=== PATIENT | female | born 1960 | race Caucasian/White ===

== ENCOUNTER 2017-04-22 18:49 | Inpatient (IN) | payer MEDICAID ==
[~2017-04-22] VITALS: Ht 170.2 cm; Wt 105.2 kg
[2017-04-22 23:04] LABS: ABNORMAL IP MESSAGE 1; HEMATOCRIT 27.3 % (37.0-47.0); HEMOGLOBIN 7.9 g/dl (12.0-16.0); MEAN CORPUSCULAR HEMOGLOBIN 24.6 pg (29.0-33.0); MEAN CORPUSCULAR HGB CONC 28.9 g/dl (32.0-37.0); MEAN PLATELET VOLUME 10.4 fl (7.4-10.4); PLATELET COUNT 674 10^3/UL (140-415); RED BLOOD COUNT 3.21 10^6/ul (4.20-5.40); RED CELL DISTRIBUTION WIDTH 16.4 % (11.5-14.5); WHITE BLOOD COUNT 9.4 10^3/ul (4.8-10.8)
[2017-04-22 23:08] LABS: INR 1.14; PROTIME 14.6 Sec (12.2-14.2); PT RATIO 1.1
[2017-04-22 23:09] LABS: PARTIAL THROMBOPLASTIN TIME 29.5 Sec (25.0-35.0)
[2017-04-22 23:13] LABS: POSITIVE DIFF @See below
[2017-04-22 23:23] LABS: ALANINE AMINOTRANSFERASE 25 IU/L (13-69); ALBUMIN/GLOBULIN RATIO 0.62; ALKALINE PHOSPHATASE 196 IU/L (42-121); ANION GAP 17 (8-16); ASPARTATE AMINO TRANSFERASE 18 IU/L (15-46); BLOOD UREA NITROGEN 51 mg/dl (7-20); CALCIUM 9.6 mg/dl (8.4-10.2); CARBON DIOXIDE 20 mmol/L (21-31); CHLORIDE 107 mmol/L (97-110); CREATININE 3.32 mg/dl (0.44-1.00); GLUCOSE 104 mg/dl (70-220); POTASSIUM 4.6 mmol/L (3.5-5.1); SODIUM 139 mmol/L (135-144); TOTAL PROTEIN 7.8 g/dl (6.1-8.1)
[2017-04-22 23:27] LABS: ADD UMIC YES; UR ASCORBIC ACID NEGATIVE (NEGATIVE); UR BILIRUBIN (Dip) NEGATIVE (NEGATIVE); UR BLOOD (Dip) 1+ mg/dL (NEGATIVE); UR CLARITY CLEAR (CLEAR); UR COLOR YELLOW (YELLOW); UR GLUCOSE (Dip) NEGATIVE (NEGATIVE); UR KETONES (Dip) NEGATIVE (NEGATIVE); UR LEUKOCYTE ESTERASE (Dip) NEGATIVE Leu/ul (NEGATIVE); UR NITRITE (Dip) NEGATIVE (NEGATIVE); UR RBC 1 /HPF (0-5); UR SPECIFIC GRAVITY (Dip) 1.015 (1.003-1.030); UR TOTAL PROTEIN (Dip) 2+ mg/dl (NEGATIVE); UR UROBILINOGEN (Dip) NEGATIVE (NEGATIVE)
[2017-04-22 23:33] LABS: TROPONIN-I < 0.012 ng/ml (0.00-0.12)
[2017-04-23] VITALS: PULSE 86; TEMP 97.9
--- NOTE | 2017-04-23 01:51 | RADRPT ---
PROCEDURE: CT ABDOMEN/PELVIS WITHOUT CONTRAST CLINICAL INDICATION: 56-year-old female with abdominal distension. TECHNIQUE: The study was performed utilizing a GE Tenantrexpe[employer]actX VCT 64-slice CT scanner. Direct axia l sections were obtained through the abdomen and pelvis without the use of intravenous contrast mate rial. Sagittal and coronal reformations were obtained. One or more of the following dose reduction t echniques were utilized: automated exposure control, adjustment of the mA and/or kV according to pat ient's size and/or the use of iterative reconstruction technique. The images were reviewed on a PAC S workstation. CTD/vol = 27.4 mGy; Total Exam DLP = 1782.1 mGy-cm. COMPARISON: None. FINDINGS: There is minimal bibasilar subsegmental atelectasis.. There is no evidence for significant pleural effusion. The liver has a normal size and contour without focal areas of abnormal density. No intra hepatic nor extrahepatic biliary ductal dilatation is seen. The gallbladder is not well visualized b ut without calcified stones, its or significant wall thickening. The pancreas is without areas of ab normal attenuation. The spleen is identified and has a normal size without abnormal density. The ad renal glands are unremarkable. The kidneys are atrophic bilaterally with moderate bilateral hydronep hrosis. There is no evidence for nephroureterolithiasis. The urinary bladder is distended with urine . There is a moderate hiatal hernia. There is a large amount of ascites throughout the abdomen and p felix. There is no evidence for bowel obstruction. The ventral aspect of the abdomen is not within t he field of view and is abutting the gantry creating artifact. There appears to be a marked flaccidity of the ventral abdominal wall but without definite hernia in the visualized portion of th e abdominal wall. There is a large cystic mass present which appears to be extending from the pelvis into the upper abdomen measuring approximately 32.2 x 32.9 x 32.6 cm. This appears to extend to a s oft tissue density within the pelvis and in calcifications within it. The aortoiliac vessels are wit hout aneurysmal dilatation. There is diffuse heterogeneous appearance throughout the osseous structu res. IMPRESSION: 1. Very large complex cystic mass extending from the pelvis region into the upper abdomen displacin g the bowel. This is suggestive of ovarian cystadenoma. 2. Marked ascites. 3. Moderate hiatal hernia. 4. Atrophic kidneys with moderate bilateral hydronephrosis and distended urine filled bladder. 5. Diffuse heterogeneous appearance throughout the osseous structures. .Cecil Thurston MD, Date Time Electronically viewed and signed by .Cecil Thurston MD, on 04/23/2017 01:51 .M/
--- NOTE | 2017-04-23 02:19 | ERD ---
ER Documentation Chief Complaint Chief Complaint abdominal distention hx abd tumor, swelling of both legs HPI The patient is a 56-year-old female, presenting to the ER because of increasing abdominal girth, bilateral leg edema. She was diagnosed with pelvic tumor in 2012, however she denies any treatment for that. The abdomen got is getting bigger and she is unable to walk and fell was frequently E. She denies abdominal pain, vomiting, dysuria, diarrhea, has gained loss of weight. She denies fever, neck pain, chest pain. Past medical history: History of pelvic tumor Past surgical history: Cholecystectomy ROS All systems reviewed and are negative except as per history of present illness. Medications Home Meds No Active Prescriptions or Reported Meds Allergies Allergies: Coded Allergies: No Known Allergy (Unverified , 04/22/17) PMhx/Soc Medical and Surgical Hx: pt denies Medical Hx, pt denies Surgical Hx Smoking Status: Never smoker Physical Exam Vitals Vital Signs Date Time Temp Pulse Resp B/P Pulse Ox O2 Delivery O2 Flow Rate FiO2 04/23/17 00:00 97.9 86 20 140/81 97 Room Air 04/22/17 18:56 97.9 95 20 141/74 97 Physical Exam Const: No acute distress. Head: Atraumatic. Eyes: Normal Conjunctiva. ENT: Normal External Ears, Nose and Mouth. Neck: Full range of motion. No meningismus. Resp: Clear to auscultation bilaterally. Cardio: Regular rate and rhythm. Abd: Soft, distended, normal bowel sounds, non tender. Skin: No petechiae or rashes. Back: No midline or flank tenderness. Ext: Bilateral leg edema, No calf tenderness Neur: Limited due to her condition Psych: Normal Mood and Affect. Result Diagram: 04/22/17203204/22/17 2100 Results 24 hrs Laboratory Tests Test 04/22/17 20:33 04/22/17 21:00 04/22/17 22:27 White Blood Count 9.410^3/ul Red Blood Count 3.2110^6/ul Hemoglobin 7.9g/dl Hematocrit 27.3% Mean Corpuscular Volume 85.0fl Mean Corpuscular Hemoglobin 24.6pg Mean Corpuscular Hemoglobin Concent 28.9g/dl Red Cell Distribution Width 16.4% Platelet Count 67030^3/UL Mean Platelet Volume 10.4fl Nucleated Red Blood Cells % 0.0/100WBC Prothrombin Time 14.6Sec Prothrombin Time Ratio 1.1 INR International Normalized Ratio 1.14 Activated Partial Thromboplast Time 29.5Sec Sodium Level 139mmol/L Potassium Level 4.6mmol/L Chloride Level 107mmol/L Carbon Dioxide Level 20mmol/L Anion Gap 17 Blood Urea Nitrogen 51mg/dl Creatinine 3.32mg/dl Glucose Level 104mg/dl Lactic Acid Level 1.3mmol/L Calcium Level 9.6mg/dl Total Bilirubin 0.0mg/dl Direct Bilirubin 0.00mg/dl Indirect Bilirubin 0.0mg/dl Aspartate Amino Transf (AST/SGOT) 18IU/L Alanine Aminotransferase (ALT/SGPT) 25IU/L Alkaline Phosphatase 196IU/L Troponin I < 0.012ng/ml Total Protein 7.8g/dl Albumin 3.0g/dl Globulin 4.80g/dl Albumin/Globulin Ratio 0.62 Lipase 246U/L Urine Color YELLOW Urine Clarity CLEAR Urine pH 5.0 Urine Specific [place] 1.015 Urine Ketones NEGATIVEmg/dL Urine Nitrite NEGATIVEmg/dL Urine Bilirubin NEGATIVEmg/dL Urine Urobilinogen NEGATIVEmg/dL Urine Leukocyte Esterase NEGATIVELeu/ul Urine Microscopic RBC 1/HPF Urine Microscopic WBC 6/HPF Urine Hemoglobin 1+mg/dL Urine Glucose NEGATIVEmg/dL Urine Total Protein 2+mg/dl Procedures/[place] [id number] Radiology Main Line: [phone] DIAGNOSTIC IMAGING REPORT Patient: THANH ZEPEDA : 1960 Age: 56 Sex: F [id number] DOS: 04/23/17 0000 Ordering MD: ARVIN GUTIERREZ DO Location: E/R Room/Bed: PROCEDURE: CT ABDOMEN/PELVIS WITHOUT CONTRAST CLINICAL INDICATION: 56-year-old female with abdominal distension. TECHNIQUE: The study was performed utilizing a [employer]imentT 64-slice CT scanner. Direct axial sections were obtained through the abdomen and pelvis without the use of intravenous contrast material. Sagittal and coronal reformations were obtained. One or more of the following dose reduction techniques were utilized: automated exposure control, adjustment of the mA and/ or kV according to patient's size and/or the use of iterative reconstruction technique. The images were reviewed on a PACS workstation. CTD/vol = 27.4 mGy ; Total Exam DLP = 1782.1 mGy-cm. COMPARISON: None. FINDINGS: There is minimal bibasilar subsegmental atelectasis.. There is no evidence for significant pleural effusion. The liver has a normal size and contour without focal areas of abnormal density. No intrahepatic nor extrahepatic biliary ductal dilatation is seen. The gallbladder is not well visualized but without calcified stones, its or significant wall thickening. The pancreas is without areas of abnormal attenuation. The spleen is identified and has a normal size without abnormal density. The adrenal glands are unremarkable. The kidneys are atrophic bilaterally with moderate bilateral hydronephrosis. There is no evidence for nephroureterolithiasis. The urinary bladder is distended with urine. There is a moderate hiatal hernia. There is a large amount of ascites throughout the abdomen and pelvis. There is no evidence for bowel obstruction. The ventral aspect of the abdomen is not within the field of view and is abutting the gantry creating artifact. There appears to be a marked flaccidity of the ventral abdominal wall but without definite hernia in the visualized portion of the abdominal wall. There is a large cystic mass present which appears to be extending from the pelvis into the upper abdomen measuring approximately 32.2 x 32.9 x 32.6 cm. This appears to extend to a soft tissue density within the pelvis and in calcifications within it. The aortoiliac vessels are without aneurysmal dilatation. There is diffuse heterogeneous appearance throughout the osseous structures. IMPRESSION: 1. Very large complex cystic mass extending from the pelvis region into the upper abdomen displacing the bowel. This is suggestive of ovarian cystadenoma. 2. Marked ascites. 3. Moderate hiatal hernia. 4. Atrophic kidneys with moderate bilateral hydronephrosis and distended urine filled bladder. 5. Diffuse heterogeneous appearance throughout the osseous structures. .Cecil Thurston MD, MD Date Time Electronically viewed and signed by .Cecil Thurston MD, MD on 04/23/2017 01:51 .M/ CC: ARVIN GUTIERREZ [place] [id number] Radiology Main Line: [phone] DIAGNOSTIC IMAGING REPORT Patient: THANH ZEPEDA : 1960 Age: 56 Sex: F MR #: [id number] DOS: 04/23/17 0223 Ordering MD: HAKAN HUYNH MD Location: [facility] [place] Room/Bed: 42[facility] PROCEDURE: ULTRASOUND PELVIS - TRANSABDOMINAL ONLY CLINICAL INDICATION: 36-year-old female with abdominal pain and distension. The patient had an abnormal CT scan revealing a pelvic mass. TECHNIQUE: Multiple sonographic images of the pelvis were obtained utilizing a transabdominal technique. The images were reviewed on a PACS workstation. COMPARISON: CT abdomen/pelvis April 23, 2017. FINDINGS: There is a large heterogeneous complex mass identified extending from the right adnexal region to the upper abdomen measuring 3.6 x 3.2 x 3.0 cm. There is increased vascularity present. The uterus, ovaries and adnexal regions were not well visualized secondary to the mass and overlying bowel gas. IMPRESSION: Large heterogeneous complex mass extending from the right adnexal region to the upper abdomen as seen on the patient's CT scan. Note that this is limiting evaluation of the rest of the pelvis. .Cecil Thurston MD, MD Date Time Electronically viewed and signed by .Cecil Thurston MD, MD on 04/23/2017 04:29 .M/ CC: HAKAN HUYNH MD EKG: Read by emergency physician Rate/Rhythm: Normal Sinus Rhythm 84 beats/min QRS, ST, T-waves: No ST elevation, no T inversion, RVH, Diffuse T abnormality Impression: Abnormal EKG MEDICAL MAKING DECISION: The patient is a 56-year-old female, presenting with large ovarian tumor, acute kidney injury, acute ascites. The differential diagnoses considered include but are not limited to malignancy , cholelithiasis, cholecystitis, cystitis, pancreatitis, hepatitis, gastritis, peptic ulcer disease, gastric ulcer, appendicitis, diverticulitis, cholangitis, choledocholithiasis, partial small bowel obstruction. Consultation: I discussed the findings with the on-call's malted milk supervisor Dr. Figueroa at 2:30 AM. She was made aware of the lab, the treatment, the patient condition. She accepted the consult Departure Diagnosis: Primary Impression: Pelvic mass in female Additional Impressions: Acute kidney injury Ascites Hiatal hernia Anemia Condition: Stable Comments I discussed the findings with the patient. I discussed the patient with the on- call hospitalist Dr. Michael at 2:40 AM who was made aware of the lab, the treatment, the patient condition. The patient is admitted to medical surgery The patient's blood pressure was elevated (>120/80) but appears stable without evidence of hypertension emergency or urgency. The patient was counseled about the risks of hypertension and urged to pursue outpatient monitoring and therapy within a week with their primary care physician. HAKAN HUYNH MD Apr 23, 2017 02:19
[2017-04-23 04:13] VITALS: Ht 170.2 cm; Wt 105.2 kg
--- NOTE | 2017-04-23 04:29 | RADRPT ---
PROCEDURE: ULTRASOUND PELVIS - TRANSABDOMINAL ONLY CLINICAL INDICATION: 36-year-old female with abdominal pain and distension. The patient had an abn ormal CT scan revealing a pelvic mass. TECHNIQUE: Multiple sonographic images of the pelvis were obtained utilizing a transabdominal tech nique. The images were reviewed on a PACS workstation. COMPARISON: CT abdomen/pelvis April 23, 2017. FINDINGS: There is a large heterogeneous complex mass identified extending from the right adnexal region to th e upper abdomen measuring 3.6 x 3.2 x 3.0 cm. There is increased vascularity present. The uterus, ov kelly and adnexal regions were not well visualized secondary to the mass and overlying bowel gas. IMPRESSION: Large heterogeneous complex mass extending from the right adnexal region to the upper abdomen as see n on the patient's CT scan. Note that this is limiting evaluation of the rest of the pelvis. .Cecil Thurston MD, MD Date Time Electronically viewed and signed by .Cecil Thurston MD, on 04/23/2017 04:29 .M/
[2017-04-23] MEDS ORDERED: FUROSEMIDE 40 MG INJ IV ONE ×2 (05:00→05:30)
[2017-04-23 05:16] VITALS: BP 132/79; RESP 20
--- NOTE | 2017-04-23 05:20 | HP ---
Date/Time of Note Date/Time of Note DATE: 04/23/17 TIME: 05:14 Assessment/Plan VTE Prophylaxis VTE Prophylaxis Intervention: SCD's Lines/Catheters IV [facility]from [facility] Saline Lock Assessment/Plan Chief Complaint/Hosp Course This is a 56 year old female being admitted to the med surg floor for: #1 pelvic mass: CT scan shows: Very large complex cystic mass extending from the pelvis region into the upper abdomen displacing the bowel. This is suggestive of ovarian cystadenoma. Patient has a massive amount of abdominal ascites/abdominal girth. BOARD CERTIFIED BEHAVIORAL ANALYST was consulted via the ED. Will also consult wood fuel pelletizer /onc. Patient may benefit from a therapeutic paracentesis as well however we will defer this until evaluation by BOARD CERTIFIED BEHAVIORAL ANALYST and wood fuel pelletizer/onc. Will also need to consult hematology. #2 Normocytic anemia: Likely secondary to underlying malignant process versus other etiology. Will check iron studies. Will need to consult hematology. #3 Acute kidney injury: possibly obstructive in nature secondary to #1. There is no previous renal function test to compare this to. Patient does have underlying bilateral hydronephrosis likely secondary to massive fluid ascites from #1. At the current time we will insert a Sanchez catheter. One dose of Lasix 40mg IV x 1. Will consult urology. And nephrology. #4 DVT and GI prolapses: SCDs, acid judit Further treatment strategy will be implemented as per the clinical course Problems: HPI/ROS Admit Date/Time Admit Date/Time Apr 23, 2017 at 02:49 Hx of Present Illness Cc: difficulty ambulating secondary to abdominal fluid This is a 56 year old female presenting to the ER due to progressively worsening disability/ambulation secondary to abdominal fluid. History was obtained from the and the patient at the bedside. As per the , patient was told she had a "cervical cyst" 4 years ago in 2012 however the patient did not want to remove it. She does not know it was cancer. She has since been retaining fluid especially in the abdomen. She came into today also because she states it has been more difficult for her to breathe due to the abdomen pushing up into her chest. Denies any fevers. Also reports lower extremity swelling. allergies: nkda meds: none ROS Const: As per HPI Eyes : No pain discharge or redness or change in visual acuity ENT: No pain, sore throat, congestion, congestion, dysphagia or discharge Respiratory: No shortness of breath, cough, sputum, wheezing, or pleuritic pain Cardiovascular: No chest pain, palpitation, PND, or edema GI : As per HPI Genitourinary: No dysuria, hematuria, flank pain , discharge or CVA tenderness Musculoskeletal: No joint pain, back pain, neck pain, restricted range of motion in neck or joints Skin: No rash, bruising or hives Neuro: No headache, dizziness, syncope, seizure, focal weakness Endocrine: No polyuria, polydipsia, temperature intolerance Psych: No hallucination, depression, anxiety or suicidal ideation PMH/Family/Social Past Medical History HTN, cervical cyst Past Surgical History Past Surgical Hx: cholecystectomy Family History Significant Family History: cancer Social History Alcohol Use: none Smoking Status: Never smoker Drug Use: none Exam/Review of Systems Vital Signs Vitals Vital Signs Date Time Temp Pulse Resp B/P Pulse Ox O2 Delivery O2 Flow Rate FiO2 04/23/17 00:00 97.9 86 20 140/81 97 Room Air Exam Exam General: Patient is lying in bed, appears fatigued, she is alert and oriented and conversant. HEENT: Temporal wasting. The pupils are equal, round and reactive. Extraocular motor are intact Neck: Supple with full range of motion. No rigidity or meningismus Chest: Nontender Lungs: Clear to auscultation bilaterally no crackles rales or wheezing Heart: Normal S1-S2, Regular rhythm and rate. Abdomen: Massive abdominal distention, nontender to palpation, tympanic Extremities: Normal to inspection, no edema no cyanosis Neurologic: Normal mental status, speech normal, cranial nerves II through XII are intact, motor and sensory are intact, unable to assess gait secondary to disability abdominal weight burden Additional Comments PROCEDURE: ULTRASOUND PELVIS - TRANSABDOMINAL ONLY CLINICAL INDICATION: 36-year-old female with abdominal pain and distension. The patient had an abnormal CT scan revealing a pelvic mass. TECHNIQUE: Multiple sonographic images of the pelvis were obtained utilizing a transabdominal technique. The images were reviewed on a PACS workstation. COMPARISON: CT abdomen/pelvis April 23, 2017. FINDINGS: There is a large heterogeneous complex mass identified extending from the right adnexal region to the upper abdomen measuring 3.6 x 3.2 x 3.0 cm. There is increased vascularity present. The uterus, ovaries and adnexal regions were not well visualized secondary to the mass and overlying bowel gas. IMPRESSION: Large heterogeneous complex mass extending from the right adnexal region to the upper abdomen as seen on the patient's CT scan. Note that this is limiting evaluation of the rest of the pelvis. .Cecil Thurston MD, Date Time Electronically viewed and signed by .Cecil Thurston MD, MD on 04/23/2017 04:29 .M/ CC: HAKAN HUYNH MD PROCEDURE: CT ABDOMEN/PELVIS WITHOUT CONTRAST CLINICAL INDICATION: 56-year-old female with abdominal distension. TECHNIQUE: The study was performed utilizing a [employer] VCT 64-slice CT scanner. Direct axial sections were obtained through the abdomen and pelvis without the use of intravenous contrast material. Sagittal and coronal reformations were obtained. One or more of the following dose reduction techniques were utilized: automated exposure control, adjustment of the mA and/ or kV according to patient's size and/or the use of iterative reconstruction technique. The images were reviewed on a PACS workstation. CTD/vol = 27.4 mGy ; Total Exam DLP = 1782.1 mGy-cm. COMPARISON: None. FINDINGS: There is minimal bibasilar subsegmental atelectasis.. There is no evidence for significant pleural effusion. The liver has a normal size and contour without focal areas of abnormal density. No intrahepatic nor extrahepatic biliary ductal dilatation is seen. The gallbladder is not well visualized but without calcified stones, its or significant wall thickening. The pancreas is without areas of abnormal attenuation. The spleen is identified and has a normal size without abnormal density. The adrenal glands are unremarkable. The kidneys are atrophic bilaterally with moderate bilateral hydronephrosis. There is no evidence for nephroureterolithiasis. The urinary bladder is distended with urine. There is a moderate hiatal hernia. There is a large amount of ascites throughout the abdomen and pelvis. There is no evidence for bowel obstruction. The ventral aspect of the abdomen is not within the field of view and is abutting the gantry creating artifact. There appears to be a marked flaccidity of the ventral abdominal wall but without definite hernia in the visualized portion of the abdominal wall. There is a large cystic mass present which appears to be extending from the pelvis into the upper abdomen measuring approximately 32.2 x 32.9 x 32.6 cm. This appears to extend to a soft tissue density within the pelvis and in calcifications within it. The aortoiliac vessels are without aneurysmal dilatation. There is diffuse heterogeneous appearance throughout the osseous structures. IMPRESSION: 1. Very large complex cystic mass extending from the pelvis region into the upper abdomen displacing the bowel. This is suggestive of ovarian cystadenoma. 2. Marked ascites. 3. Moderate hiatal hernia. 4. Atrophic kidneys with moderate bilateral hydronephrosis and distended urine filled bladder. 5. Diffuse heterogeneous appearance throughout the osseous structures. .Cecil Thurston MD, MD Date Time Electronically viewed and signed by .Cecil Thurston MD, MD on 04/23/2017 01:51 .M/ CC: ARVIN GUTIERREZ DO Labs Result Diagram: 04/22/17203204/22/172099 [facility] RODRIGUEZ Apr 23, 2017 05:20 [facility] RODRIGUEZ Apr 23, 2017 05:20
[2017-04-23] MEDS ORDERED: ACETAMINOPHEN 325 MG TAB PO PRN (05:30)
[2017-04-23] MEDS ORDERED: NACL 0.9% 3 ML SYG IV SCH (05:30)
[2017-04-23] MEDS ORDERED: morphine 2 MG INJ IV PRN (05:30)
[2017-04-23] MEDS ORDERED: PANTOPRAZOLE (EC) 40 MG TAB PO SCH (06:00)
[2017-04-23] MEDS: ONDANSETRON 4 MG INJ IV PRN (06:55)
[2017-04-23 07:24] LABS: RETICULOCYTE COUNT % 2.2 % (0.5-1.5)
[2017-04-23 07:57] VITALS: BP 109/71; RESP 20
[2017-04-23 08:05] LABS: T3 UPTAKE 41.9 % (23.5-40.5)
[2017-04-23 08:08] LABS: IRON 18 ug/dl (35-150)
[2017-04-23 08:15] LABS: CALCIUM 9.6 mg/dl (8.4-10.2); CREATININE 3.15 mg/dl (0.44-1.00); POTASSIUM 5.2 mmol/L (3.5-5.1)
[2017-04-23 08:17] LABS: TOTAL IRON BINDING CAPACITY 213 ug/dl (241-421)
[2017-04-23 08:19] LABS: THYROID STIMULATING HORMONE 4.98 MIU/L (0.465-4.680)
[2017-04-23 09:26] LABS: CARCINOEMBRYONIC ANTIGEN 3.1 ng/ml (0.0-5.0)
[2017-04-23 10:39] LABS: ADD UMIC YES; UR ASCORBIC ACID NEGATIVE (NEGATIVE); UR BACTERIA FEW /HPF (NONE SEEN); UR BILIRUBIN (Dip) NEGATIVE (NEGATIVE); UR BLOOD (Dip) 1+ mg/dL (NEGATIVE); UR CLARITY CLEAR (CLEAR); UR COLOR YELLOW (YELLOW); UR GLUCOSE (Dip) NEGATIVE (NEGATIVE); UR KETONES (Dip) NEGATIVE (NEGATIVE); UR LEUKOCYTE ESTERASE (Dip) NEGATIVE Leu/ul (NEGATIVE); UR NITRITE (Dip) NEGATIVE (NEGATIVE); UR RBC 3 /HPF (0-5); UR SPECIFIC GRAVITY (Dip) 1.014 (1.003-1.030); UR TOTAL PROTEIN (Dip) 1+ mg/dl (NEGATIVE); UR UROBILINOGEN (Dip) NEGATIVE (NEGATIVE)
--- NOTE | 2017-04-23 10:47 | PN ---
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 ascites has been bad for the past year. pt also hasn't been eating much Exam/Review of Systems Vital Signs Vitals Vital Signs Date Time Temp Pulse Resp B/P Pulse Ox O2 Delivery O2 Flow Rate FiO2 04/23/17 07:57 97.9 81 20 109/71 100 04/23/17 00:00 Room Air Exam cachectic no mrg lungs clear florid ascites, abd tense no rashes Results Result Diagram: 04/22/17203204/23/1733 Results 24 hrs Laboratory Tests Test 04/22/17 20:33 04/22/17 21:00 04/22/17 22:27 04/23/17 06:30 White Blood Count 9.4 Red Blood Count 3.21 L Hemoglobin 7.9 L Hematocrit 27.3 L Mean Corpuscular Volume 85.0 Mean Corpuscular Hemoglobin 24.6 L Mean Corpuscular Hemoglobin Concent 28.9 L Red Cell Distribution Width 16.4 H Platelet Count 674 H Mean Platelet Volume 10.4 Nucleated Red Blood Cells % 0.0 Prothrombin Time 14.6 H Prothrombin Time Ratio 1.1 INR International Normalized Ratio 1.14 Activated Partial Thromboplast Time 29.5 Sodium Level 139 Potassium Level 4.6 Chloride Level 107 Carbon Dioxide Level 20 L Anion Gap 17 H Blood Urea Nitrogen 51 H Creatinine 3.32 H Glucose Level 104 Lactic Acid Level 1.3 Calcium Level 9.6 Total Bilirubin 0.0 L Direct Bilirubin 0.00 Indirect Bilirubin 0.0 Aspartate Amino Transf (AST/SGOT) 18 Alanine Aminotransferase (ALT/SGPT) 25 Alkaline Phosphatase 196 H Troponin I < 0.012 Total Protein 7.8 Albumin 3.0 L Globulin 4.80 H Albumin/Globulin Ratio 0.62 Lipase 246 Urine Color YELLOW YELLOW Urine Clarity CLEAR CLEAR Urine pH 5.0 5.0 Urine Specific [place] 1.015 1.014 Urine Ketones NEGATIVE NEGATIVE Urine Nitrite NEGATIVE NEGATIVE Urine Bilirubin NEGATIVE NEGATIVE Urine Urobilinogen NEGATIVE NEGATIVE Urine Leukocyte Esterase NEGATIVE NEGATIVE Urine Microscopic RBC 1 3 Urine Microscopic WBC 6 H 3 Urine Hemoglobin 1+ H 1+ H Urine Glucose NEGATIVE NEGATIVE Urine Total Protein 2+ H 1+ H Urine Bacteria FEW A Test 04/23/17 06:33 04/23/17 06:34 Sodium Level 138 Potassium Level 5.2 H Chloride Level 109 Carbon Dioxide Level 18 L Anion Gap 16 Blood Urea Nitrogen 52 H Creatinine 3.15 H Glucose Level 100 Osmolality 300 H Calcium Level 9.6 Phosphorus Level 5.0 H Magnesium Level 2.0 Iron Level 18 L Total Iron Binding Capacity 213 L Percent Iron Saturation 8 L Ferritin 342.0 H Albumin 3.0 L Triglycerides Level 134 Cholesterol Level 141 LDL Cholesterol, Calculated 79 HDL Cholesterol 35 L Cholesterol/HDL Ratio 4.0 Alpha Fetoprotein 1.36 Carcinoembryonic Antigen 3.1 CA 19-9 Antigen 118.0 H CA 125 Antigen 146.0 H Thyroid Stimulating Hormone (TSH) 4.980 H Free Thyroxine Index 3.85 Thyroxine (T4) 9.2 Triiodothyronine (T3) Uptake 41.9 H Absolute Reticulocyte Count 0.064 Percent Reticulocyte Count 2.2 H Medications Medications Current Medications Ondansetron HCl (Zofran Inj) 4 mg Q6H PRN IV NAUSEA AND/OR VOMITING Last administered on 04/23/17t 06:55; Admin Dose 4 MG; Start 04/23/17 at 05:30 Acetaminophen (Tylenol Tab) 650 mg Q6H PRN PO PAIN LEVEL 1-3 OR FEVER; Start 04/23/17 at 05:30 Morphine Sulfate (morphine) 2 mg Q4H PRN IV SEVERE PAIN LEVEL 7-10; Start at 05:30 VIKY GONZÁLES MD Apr 23, 2017 10:47
--- NOTE | 2017-04-23 14:37 | RADRPT ---
PROCEDURE: Renal US. CLINICAL INDICATION: Renal dysfunction. Hydronephrosis. TECHNIQUE: Multiple sonographic images of the kidneys and urinary bladder were obtained. The imag es were reviewed on a PACS workstation. COMPARISON: CT scan of the abdomen and pelvis done earlier the same day. FINDINGS: The right kidney measures 15.7 cm in length. The left kidney is not visualized. There is moderate to severe right hydronephrosis. As seen on prior CT scan, there is a large multiloculated cystic mass in the abdomen and pelvis. IMPRESSION: 1. Moderate to severe right hydronephrosis. 2. Left kidney not visualized. 3. Large multiloculated cystic mass in the abdomen and pelvis. RPTAT: QQ .Que Le MD, MD Date Time Electronically viewed and signed by .Que Le MD, MD on 04/23/2017 14:36 .R/
--- NOTE | 2017-04-23 15:51 | RADRPT ---
PROCEDURE: US Abdomen (limited). CLINICAL INDICATION: Abdominal pain and distension. TECHNIQUE: Multiple real-time longitudinal and transverse images of the four quadrants of the abdo men were acquired utilizing a curved array transducer. Images were reviewed on a high-resolution PAC S workstation. COMPARISON: CT scan of the abdomen and pelvis done earlier the same day. FINDINGS: There is a large multiloculated cystic mass in the abdomen and pelvis. There is probable ascites whi ch cannot be differentiated from the large multiloculated cystic mass. IMPRESSION: 1. Large multiloculated cystic mass in the abdomen and pelvis which cannot be differentiated from p robable ascites. For this reason, paracentesis was not performed. RPTAT: QQ .Que Le MD, MD Date Time Electronically viewed and signed by .Que Le MD, on 04/23/2017 15:48 .R/
[2017-04-23 15:55] VITALS: BP 134/59; RESP 18
--- NOTE | 2017-04-23 16:16 | CONS ---
Date/Time of Note Date/Time of Note DATE: 04/23/17 TIME: 16:01 Assessment/Plan Assessment/Plan Chief Complaint/Hosp Course # Renal failure due to obstructive uropathy. The kidneys appear small on CT, so renal failure likely is chronic and may not be reversible. Urology consult is pending. Consider ureteral stenting if possible. # Hyperkalemia, mild. Will start gentle IVF with NaBicarb. Low K diet. Agree with furosemide. # Anemia. Will check iron studies. Start JING. # Pelvic mass. Await work up by Plant Equipment Engineer Problems: Consultation Date/Type/Reason Admit Date/Time Apr 23, 2017 at 02:49 Type of Consultation: Nephrology Reason for Consultation Renal failure Hx of Present Illness The patient is an unfortunate 56 year old female who is admitted with a pelvic mass and renal failure. 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 The patient refused work up or treatment and has not had any health care since then. She has developed massive increase in abdominal girth and pedal edema over the past 2 years. She also has become increasingly weak and has fallen several times this week. She finally agreed to come to the ED. She had not taken any medications. We are asked to see her for acute renal failure. 10 system review negative, other than reported in the HPI. 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) Past Surgical History Past Surgical Hx: cholecystectomy Family History Significant Family History: heart disease (mother), cancer (brother - lung cancer) Social History Alcohol Use: none Smoking Status: Never smoker Drug Use: none Exam/Review of Systems Vital Signs Vitals Vital Signs Date Time Temp Pulse Resp B/P Pulse Ox O2 Delivery O2 Flow Rate FiO2 04/23/17 08:00 3.0 04/23/17 07:57 97.9 81 20 109/71 100 04/23/17 00:00 Room Air Exam Constitutional: alert Head: atraumatic, normocephalic Neck: supple, No jvd Respiratory: clear to auscultation Cardiovascular: regular rate and rhythm Gastrointestinal: distended, other (massive abdominal distension) Extremities: edema Results Result Diagram: 04/22/17203204/23/17632 Results 24 hrs Laboratory Tests Test 04/22/17 20:33 04/22/17 21:00 04/22/17 22:27 04/23/17 06:30 White Blood Count 9.4 Red Blood Count 3.21 L Hemoglobin 7.9 L Hematocrit 27.3 L Mean Corpuscular Volume 85.0 Mean Corpuscular Hemoglobin 24.6 L Mean Corpuscular Hemoglobin Concent 28.9 L Red Cell Distribution Width 16.4 H Platelet Count 674 H Mean Platelet Volume 10.4 Nucleated Red Blood Cells % 0.0 Prothrombin Time 14.6 H Prothrombin Time Ratio 1.1 INR International Normalized Ratio 1.14 Activated Partial Thromboplast Time 29.5 Sodium Level 139 Potassium Level 4.6 Chloride Level 107 Carbon Dioxide Level 20 L Anion Gap 17 H Blood Urea Nitrogen 51 H Creatinine 3.32 H Glucose Level 104 Lactic Acid Level 1.3 Calcium Level 9.6 Total Bilirubin 0.0 L Direct Bilirubin 0.00 Indirect Bilirubin 0.0 Aspartate Amino Transf (AST/SGOT) 18 Alanine Aminotransferase (ALT/SGPT) 25 Alkaline Phosphatase 196 H Troponin I < 0.012 Total Protein 7.8 Albumin 3.0 L Globulin 4.80 H Albumin/Globulin Ratio 0.62 Lipase 246 Urine Color YELLOW YELLOW Urine Clarity CLEAR CLEAR Urine pH 5.0 5.0 Urine Specific [place] 1.015 1.014 Urine Ketones NEGATIVE NEGATIVE Urine Nitrite NEGATIVE NEGATIVE Urine Bilirubin NEGATIVE NEGATIVE Urine Urobilinogen NEGATIVE NEGATIVE Urine Leukocyte Esterase NEGATIVE NEGATIVE Urine Microscopic RBC 1 3 Urine Microscopic WBC 6 H 3 Urine Hemoglobin 1+ H 1+ H Urine Glucose NEGATIVE NEGATIVE Urine Total Protein 2+ H 1+ H Urine Bacteria FEW A Urine Osmolality 425 Urine Random Sodium 13 L Test 04/23/17 06:33 04/23/17 06:34 Sodium Level 138 Potassium Level 5.2 H Chloride Level 109 Carbon Dioxide Level 18 L Anion Gap 16 Blood Urea Nitrogen 52 H Creatinine 3.15 H Glucose Level 100 Osmolality 300 H Calcium Level 9.6 Phosphorus Level 5.0 H Magnesium Level 2.0 Iron Level 18 L Total Iron Binding Capacity 213 L Percent Iron Saturation 8 L Ferritin 342.0 H Albumin 3.0 L Triglycerides Level 134 Cholesterol Level 141 LDL Cholesterol, Calculated 79 HDL Cholesterol 35 L Cholesterol/HDL Ratio 4.0 Alpha Fetoprotein 1.36 Carcinoembryonic Antigen 3.1 CA 19-9 Antigen 118.0 H CA 125 Antigen 146.0 H Thyroid Stimulating Hormone (TSH) 4.980 H Free Thyroxine Index 3.85 Thyroxine (T4) 9.2 Triiodothyronine (T3) Uptake 41.9 H Absolute Reticulocyte Count 0.064 Percent Reticulocyte Count 2.2 H Medications Medications Current Medications Ondansetron HCl (Zofran Inj) 4 mg Q6H PRN IV NAUSEA AND/OR VOMITING Last administered on 04/23/17t 06:55; Admin Dose 4 MG; Start 04/23/17 at 05:30 Acetaminophen (Tylenol Tab) 650 mg Q6H PRN PO PAIN LEVEL 1-3 OR FEVER; Start 04/23/17 at 05:30 Morphine Sulfate (morphine) 2 mg Q4H PRN IV SEVERE PAIN LEVEL 7-10; Start at 05:30 CAROL WESTFALL MD Apr 23, 2017 16:15
[2017-04-23] MEDS: SODIUM BICARBONATE (IV ADD) 150 MEQ in DEXTROSE 5% 1,000 ML IV SCH ×2 (17:30→18:34)
[2017-04-23 19:55] VITALS: BP 118/58; RESP 18
[2017-04-24 01:55] VITALS: BP 117/59; RESP 20
[2017-04-24] MEDS: ONDANSETRON 4 MG INJ IV PRN (02:13)
[2017-04-24] MEDS ORDERED: ONDANSETRON 4 MG INJ IV PRN ×2 (02:30→16:30)
[2017-04-24] MEDS: ALBUTEROL/IPRATROPIUM (NEB) 3 ML AMP HHN PRN ×2 (02:38→16:22)
[2017-04-24] MEDS ORDERED: FUROSEMIDE 20 MG INJ IV ONE (03:00)
[2017-04-24] MEDS: METOCLOPRAMIDE 10 MG INJ IV PRN ×2 (03:31→14:40)
[2017-04-24 05:27] LABS: ABNORMAL IP MESSAGE 1; BASOPHILS % 0.1 % (0.0-2.0); HEMATOCRIT 28.5 % (37.0-47.0); HEMOGLOBIN 8.2 g/dl (12.0-16.0); LYMPHOCYTES # 0.3 10^3/ul (0.8-2.9); LYMPHOCYTES % 2.6 % (15.0-51.0); MEAN CORPUSCULAR HEMOGLOBIN 24.8 pg (29.0-33.0); MEAN CORPUSCULAR HGB CONC 28.8 g/dl (32.0-37.0); MEAN CORPUSCULAR VOLUME 86.1 fl (82.0-101.0); MEAN PLATELET VOLUME 10.2 fl (7.4-10.4); MONOCYTE # 0.5 10^3/ul (0.3-0.9); MONOCYTES % 4.4 % (0.0-11.0); NEUTROPHIL # 10.2 10^3/ul (1.6-7.5); NEUTROPHILS % 92.4 % (39.0-77.0); PLATELET COUNT 672 10^3/UL (140-415); RED BLOOD COUNT 3.31 10^6/ul (4.20-5.40); RED CELL DISTRIBUTION WIDTH 16.4 % (11.5-14.5)
[2017-04-24 05:54] LABS: IRON 17 ug/dl (35-150)
[2017-04-24 06:03] LABS: TOTAL IRON BINDING CAPACITY 208 ug/dl (241-421)
[2017-04-24 06:06] LABS: POSITIVE DIFF @See below
[2017-04-24 06:09] LABS: ALBUMIN/GLOBULIN RATIO 0.66; CALCIUM 9.7 mg/dl (8.4-10.2); CREATININE 3.49 mg/dl (0.44-1.00); POTASSIUM 5.1 mmol/L (3.5-5.1); TOTAL PROTEIN 7.5 g/dl (6.1-8.1)
[2017-04-24 07:29] LABS: PHOSPHORUS 5.9 mg/dl (2.5-4.9)
[2017-04-24 07:30] VITALS: BP 107/53; RESP 18
[2017-04-24] MEDS ORDERED: MULTIVIT/CA CARB/B CMPLX/FA TAB PO SCH (09:00)
[2017-04-24 14:36] VITALS: BP 107/69; RESP 22
[2017-04-24] MEDS ORDERED: FUROSEMIDE 40 MG INJ IV ONE (15:30)
--- NOTE | 2017-04-24 15:34 | CONS ---
Date/Time of Note Date/Time of Note DATE: 04/24/17 TIME: 15:29 Assessment/Plan Assessment/Plan Chief Complaint/Hosp Course # Renal failure due to obstructive uropathy. The kidneys appear small on CT, so renal failure likely is chronic and may not be reversible. Urology consult is pending. Consider ureteral stenting if possible. Fluid overloaded. furosemide ordered for today. # Vomiting. discussed with nursing. High risk for aspiration. The hospitalist was called will evaluate if NGT. # Hyperkalemia, mild. Will start gentle IVF with NaBicarb. Low K diet. # Anemia. TSAT is low. Transfuse PRN. No JING due to likely cancer diagnosis. # Pelvic mass. Await work up by Leasing Sales Consultant Problems: Consultation Date/Type/Reason Admit Date/Time Apr 23, 2017 at 02:49 Initial Consult Date Type of Consultation: Nephrology 24 HR Interval Summary Free Text/Dictation Patient's reports that she has been vomiting multiple times since last night. Exam/Review of Systems Vital Signs Vitals Vital Signs Date Time Temp Pulse Resp B/P Pulse Ox O2 Delivery O2 Flow Rate FiO2 04/24/17 13:47 4.0 04/24/17 07:30 97.4 95 18 107/53 99 04/24/17 02:44 Nasal Cannula Intake and Output 04/23/17 04/23/17 04/24/17 15:00 23:00 07:00 Intake Total 660 ml 750 ml Output Total 400 ml 220 ml Balance 260 ml 530 ml Exam Constitutional: alert Neck: No jvd Respiratory: other (bilateral rhonci) Cardiovascular: regular rate and rhythm Gastrointestinal: distended, mass Extremities: edema Results Result Diagram: 04/24/17 0438 04/24/17 0438 Results 24 hrs Laboratory Tests Test 04/24/17 04:00 04/24/17 04:38 Urine Random Creatinine 50.78 Urine Total Protein 147.0 H White Blood Count 11.0 H Red Blood Count 3.31 L Hemoglobin 8.2 L Hematocrit 28.5 L Mean Corpuscular Volume 86.1 Mean Corpuscular Hemoglobin 24.8 L Mean Corpuscular Hemoglobin Concent 28.8 L Red Cell Distribution Width 16.4 H Platelet Count 672 H Mean Platelet Volume 10.2 Neutrophils % 92.4 H Lymphocytes % 2.6 L Monocytes % 4.4 Eosinophils % 0.0 Basophils % 0.1 Nucleated Red Blood Cells % 0.0 Neutrophils # 10.2 H Lymphocytes # 0.3 L Monocytes # 0.5 Eosinophils # 0.0 Basophils # 0.0 Nucleated Red Blood Cells # 0.0 Sodium Level 139 Potassium Level 5.1 Chloride Level 107 Carbon Dioxide Level 20 L Anion Gap 17 H Blood Urea Nitrogen 55 H Creatinine 3.49 H Glucose Level 133 Calcium Level 9.7 Phosphorus Level 5.9 H Iron Level 17 L Total Iron Binding Capacity 208 L Percent Iron Saturation 8 L Ferritin 364.0 H Total Bilirubin 0.0 L Direct Bilirubin 0.00 Indirect Bilirubin 0.0 Aspartate Amino Transf (AST/SGOT) 12 L Alanine Aminotransferase (ALT/SGPT) 26 Alkaline Phosphatase 168 H Total Protein 7.5 Albumin 3.0 L Globulin 4.50 H Albumin/Globulin Ratio 0.66 Medications Medications Current Medications Acetaminophen (Tylenol Tab) 650 mg Q6H PRN PO PAIN LEVEL 1-3 OR FEVER; Start 04/23/17 at 05:30 Morphine Sulfate 2 mg 2 mg Q4H PRN IV SEVERE PAIN LEVEL 7-10; Start 04/23/17 at 05:30 Sodium Bicarbonate/ Dextrose (Na Bicarb/D5W) 1,150 ml @ 50 mls/hr Q23H IV Last administered on 04/23/17 18:34; Admin Dose 50 MLS/HR; Start 04/23/17 at 17:30 Multivit/Ca Carb/ B Cmplx/FA/Prenat (Meghna-Lucy) 1 tab DAILY PO Last administered on 04/24/17 08:44; Admin Dose 1 TAB; Start 04/24/17 at 09:00 Metoclopramide HCl (Reglan) 10 mg Q6H PRN IV EMESIS Last administered on 14:40; Admin Dose 10 MG; Start 04/24/17 at 02:30 Ondansetron HCl (Zofran Inj) 4 mg Q4H PRN IV NAUSEA AND/OR VOMITING Last administered on 04/24/17 13:25; Admin Dose 4 MG; Start 04/24/17 at 02:30 CAROL WESTFALL MD Apr 24, 2017 15:34
[2017-04-24] MEDS ORDERED: LORAZEPAM 2 MG INJ IV PRN ×2 (16:30)
[2017-04-24] MEDS ORDERED: DIMETHICONE STICK TOP PRN (16:30)
[2017-04-24] MEDS ORDERED: KETOROLAC 15 MG INJ IV PRN (16:30)
[2017-04-24] MEDS ORDERED: ACETAMINOPHEN 325 MG TAB PO PRN (16:30)
[2017-04-24] MEDS ORDERED: DIPHENHYDRAMINE 50 MG INJ IV PRN (16:30)
[2017-04-24] MEDS ORDERED: morphine (DRIP) 100 MG/100 ML 100 ML IV SCH (16:30)
[2017-04-24] MEDS ORDERED: LORAZEPAM 1 MG TAB PO PRN (16:30)
[2017-04-24] MEDS ORDERED: ARTIFICIAL TEARS 15 ML OPH BOTH EYES PRN (16:30)
[2017-04-24] MEDS ORDERED: morphine LIQ (20 MG/ML PO SYG) PO PRN (16:30)
[2017-04-24] MEDS ORDERED: SCOPOLAMINE 1.5 MG PATCH TRANSDERM SCH (16:30)
[2017-04-24] MEDS ORDERED: ACETAMINOPHEN 500 MG TAB PO PRN (16:30)
[2017-04-24] MEDS ORDERED: HALOPERIDOL LIQ (2 MG/ML) PO SYG PO PRN ×2 (16:30)
[2017-04-24] MEDS ORDERED: LORAZEPAM (2 MG/ML PO SYG) SL PRN (16:30)
[2017-04-24] MEDS ORDERED: ATROPINE 1% 5 ML OPH SL PRN (16:30)
[2017-04-24] MEDS ORDERED: morphine 2 MG INJ IV PRN (16:30)
[2017-04-24] MEDS ORDERED: HYOSCYAMINE 0.125 MG SUBL TAB SL PRN (16:30)
[2017-04-24] MEDS: SODIUM BICARBONATE (IV ADD) 150 MEQ in DEXTROSE 5% 1,000 ML IV SCH (16:30)
[2017-04-24] MEDS ORDERED: ONDANSETRON (ODT) 4 MG TAB ODT PRN (16:30)
[2017-04-24] MEDS ORDERED: ONDANSETRON INJ 8 MG in SOD CHLORIDE 0.9% 50 ML IVPB PRN (16:30)
[2017-04-24] MEDS ORDERED: GLYCOPYRROLATE 0.2 MG/ML PO SYG PO PRN (16:30)
[2017-04-24] MEDS ORDERED: ALBUTEROL/IPRATROPIUM (NEB) 3 ML AMP HHN PRN (16:30)
[2017-04-24] MEDS ORDERED: HALOPERIDOL 5 MG INJ IM PRN (16:30)
[2017-04-24] MEDS ORDERED: DIPHENHYDRAMINE 2.5 MG/ML 5ML CUP PO PRN (16:30)
--- NOTE | 2017-04-24 16:42 | PN ---
Date/Time of Note Date/Time of Note DATE: 04/24/17 TIME: 16:37 Assessment/Plan VTE Prophylaxis VTE Prophylaxis Intervention: SCD's Lines/Catheters IV Catheter Type (from Nrsg): Saline Lock Urinary Cath still in place: Yes Reason Cath still needed: urinary retention Assessment/Plan Assessment/Plan 56 yo F admitted for abd pain in setting of large ovarian mass. At this point pt is too frail for surgical intervention. Family appropriately has opted for comfort measures. comfort measures initiated sw consult for inpatient hospice eval DNR Subjective 24 Hr Interval Summary Free Text/Dictation Family meeting held today. Pt's and children state pt was diagnosed with an ovarian mass 4 years ago and was told at that time to follow up with [facility] and refused despite multiple attempts by her family. Exam/Review of Systems Vital Signs Vitals Vital Signs Date Time Temp Pulse Resp B/P Pulse Ox O2 Delivery O2 Flow Rate FiO2 04/24/17 16:23 96 20 100 Nasal Cannula 5.0 04/24/17 14:36 97.2 107/69 Intake and Output 04/23/17 04/23/17 04/24/17 15:00 23:00 07:00 Intake Total 660 ml 750 ml Output Total 400 ml 220 ml Balance 260 ml 530 ml Exam cachectic, very frail +gross abd distension poor breath sounds tachy phan in place draining yellow urine Results Result Diagram: 04/24/17 0438 04/24/17 0438 Results 24 hrs Laboratory Tests Test 04/24/17 04:00 04/24/17 04:38 Urine Random Creatinine 50.78 Urine Total Protein 147.0 H White Blood Count 11.0 H Red Blood Count 3.31 L Hemoglobin 8.2 L Hematocrit 28.5 L Mean Corpuscular Volume 86.1 Mean Corpuscular Hemoglobin 24.8 L Mean Corpuscular Hemoglobin Concent 28.8 L Red Cell Distribution Width 16.4 H Platelet Count 672 H Mean Platelet Volume 10.2 Neutrophils % 92.4 H Lymphocytes % 2.6 L Monocytes % 4.4 Eosinophils % 0.0 Basophils % 0.1 Nucleated Red Blood Cells % 0.0 Neutrophils # 10.2 H Lymphocytes # 0.3 L Monocytes # 0.5 Eosinophils # 0.0 Basophils # 0.0 Nucleated Red Blood Cells # 0.0 Sodium Level 139 Potassium Level 5.1 Chloride Level 107 Carbon Dioxide Level 20 L Anion Gap 17 H Blood Urea Nitrogen 55 H Creatinine 3.49 H Glucose Level 133 Calcium Level 9.7 Phosphorus Level 5.9 H Iron Level 17 L Total Iron Binding Capacity 208 L Percent Iron Saturation 8 L Ferritin 364.0 H Total Bilirubin 0.0 L Direct Bilirubin 0.00 Indirect Bilirubin 0.0 Aspartate Amino Transf (AST/SGOT) 12 L Alanine Aminotransferase (ALT/SGPT) 26 Alkaline Phosphatase 168 H Total Protein 7.5 Albumin 3.0 L Globulin 4.50 H Albumin/Globulin Ratio 0.66 Medications Medications Current Medications Acetaminophen (Tylenol Tab) 650 mg Q6H PRN PO PAIN LEVEL 1-3 OR FEVER; Start 04/23/17 at 05:30 Morphine Sulfate 2 mg 2 mg Q4H PRN IV SEVERE PAIN LEVEL 7-10; Start 04/23/17 at 05:30 Sodium Bicarbonate/ Dextrose (Na Bicarb/D5W) 1,150 ml @ 50 mls/hr Q23H IV Last administered on 04/23/17 18:34; Admin Dose 50 MLS/HR; Start 04/23/17 at 17:30 Multivit/Ca Carb/ B Cmplx/FA/Prenat (Meghna-Lucy) 1 tab DAILY PO Last administered on 04/24/17 08:44; Admin Dose 1 TAB; Start 04/24/17 at 09:00 Metoclopramide HCl (Reglan) 10 mg Q6H PRN IV EMESIS Last administered on 14:40; Admin Dose 10 MG; Start 04/24/17 at 02:30 Ondansetron HCl (Zofran Inj) 4 mg Q4H PRN IV NAUSEA AND/OR VOMITING Last administered on 04/24/17 13:25; Admin Dose 4 MG; Start 04/24/17 at 02:30 VIKY GONZÁLES MD Apr 24, 2017 16:42
--- NOTE | 2017-04-24 17:17 | DES ---
Date/Time of Note Date/Time of Note DATE: 04/24/17 TIME: 17:10 Discharge/ Summary Admission/Discharge Info Admit Date/Time Apr 23, 2017 at 02:49 Discharge Date/Time Final Diagnosis ovarian mass Preliminary Cause of ovarian mass Hx of Present Illness Cc: difficulty ambulating secondary to abdominal fluid This is a 56 year old female presenting to the ER due to progressively worsening disability/ambulation secondary to abdominal fluid. History was obtained from the and the patient at the bedside. As per the , patient was told she had a "cervical cyst" 4 years ago in 2012 however the patient did not want to remove it. She does not know it was cancer. She has since been retaining fluid especially in the abdomen. She came into today also because she states it has been more difficult for her to breathe due to the abdomen pushing up into her chest. Denies any fevers. Also reports lower extremity swelling. allergies: nkda meds: none Hospital Course 56 yo F admitted for abd pain in setting of large ovarian mass. At this point pt is too frail for surgical intervention. Family appropriately has opted for comfort measures. comfort measures initiated at 503pm. Within 2 minutes I was informed by the nurse pt had vomitted a large amount of blood and her pulse was no longer palpable. I presented to patient's chairside. Pt was not responsive to tactile of verbal stimuli. Pupils were not reactive to light. No breath sounds or heart sounds were auscitatable. Pt was pronounced at 508pm. Her entire family was at bedside at time of pt's passing. Pt was comfort care only/DNR at time of her passing. Pending Labs/Cultures Laboratory Tests Test 04/24/17 04:00 04/24/17 04:38 Urine Random Creatinine 50.78mg/dl (20-320) Urine Total Protein 147.0mg/dl (0.0-11.9) White Blood Count 11.010^3/ul (4.8-10.8) Red Blood Count 3.3110^6/ul (4.20-5.40) Hemoglobin 8.2g/dl (12.0-16.0) Hematocrit 28.5% (37.0-47.0) Mean Corpuscular Volume 86.1fl (82.0-101.0) Mean Corpuscular Hemoglobin 24.8pg (29.0-33.0) Mean Corpuscular Hemoglobin Concent 28.8g/dl (32.0-37.0) Red Cell Distribution Width 16.4% (11.5-14.5) Platelet Count 05709^3/UL (140-415) Mean Platelet Volume 10.2fl (7.4-10.4) Neutrophils % 92.4% (39.0-77.0) Lymphocytes % 2.6% (15.0-51.0) Monocytes % 4.4% (0.0-11.0) Eosinophils % 0.0% (0.0-7.0) Basophils % 0.1% (0.0-2.0) Nucleated Red Blood Cells % 0.0/100WBC (0.0-0.0) Neutrophils # 10.210^3/ul (1.6-7.5) Lymphocytes # 0.310^3/ul (0.8-2.9) Monocytes # 0.510^3/ul (0.3-0.9) Eosinophils # 0.010^3/ul (0.0-0.5) Basophils # 0.010^3/ul (0.0-0.1) Nucleated Red Blood Cells # 0.010^3/ul (0.0-0.0) Sodium Level 139mmol/L (135-144) Potassium Level 5.1mmol/L (3.5-5.1) Chloride Level 107mmol/L (97-110) Carbon Dioxide Level 20mmol/L (21-31) Anion Gap 17 (8-16) Blood Urea Nitrogen 55mg/dl (7-20) Creatinine 3.49mg/dl (0.44-1.00) Glucose Level 133mg/dl (70-220) Calcium Level 9.7mg/dl (8.4-10.2) Phosphorus Level 5.9mg/dl (2.5-4.9) Iron Level 17ug/dl (35-150) Total Iron Binding Capacity 208ug/dl (241-421) Percent Iron Saturation 8% SAT (22-52) Ferritin 364.0ng/ml (11.1-264.0) Total Bilirubin 0.0mg/dl (0.2-1.3) Direct Bilirubin 0.00mg/dl (0.00-0.20) Indirect Bilirubin 0.0mg/dl (0-1.1) Aspartate Amino Transf (AST/SGOT) 12IU/L (15-46) Alanine Aminotransferase (ALT/SGPT) 26IU/L (13-69) Alkaline Phosphatase 168IU/L (42-121) Total Protein 7.5g/dl (6.1-8.1) Albumin 3.0g/dl (3.3-4.9) Globulin 4.50g/dl (1.3-3.2) Albumin/Globulin Ratio 0.66 VIKY GONZÁLES MD Apr 24, 2017 17:17
--- NOTE | 2017-04-24 19:26 | CONS ---
DATE OF ADMISSION: 04/23/2017 DATE OF CONSULTATION: HISTORY: This is an unfortunate 56-year-old female who was admitted through the ER 017. Apparently, patient had known large abdominopelvic mass for nearly 4 years and she was worked up at [facility] at that time. She was recommended to undergo surgery, but patient refused. Montserrat bernard apparently has been managing this at home and has gotten progressively worse. Now she is admitted for shortness of breath, continued pain and continued cachexia. Workup with the CT of abdomen and pelvis without contrast revealed a large abdominopelvic mass about 33 x 33 x 33 cm. The mass is lar chemo cystic. There is also ascites. This CT was without contrast, therefore carcinomatosis was not able to be visualized. Patient also has atrophic bilateral kidneys with moderate bilateral hydrone phrosis. She is anemic with reactive thrombocytosis at 674,000. Her chemistry, creatinine is at 3. 5. Tumor markers were drawn. CA-125 was elevated at 146, and a CA-19 . ALLERGIES: THE PATIENT HAS NO KNOWN DRUG ALLERGIES. CURRENT MEDICATIONS: None. PAST MEDICAL HISTORY: Significant for hypertension. PAST SURGICAL HISTORY: Consists of cholecystectomy. FAMILY HISTORY: Noncontributory in terms of cancer history. REVIEW OF SYSTEMS: As per above. Patient has shortness of breath. She does have lower extremity d iscomfort with edema. PHYSICAL EXAMINATION: VITAL SIGNS: Patient is afebrile, pulse in the 90s, blood pressure is normal, respirations 20. She is satting 90% on room air. GENERAL APPEARANCE: The patient is uncomfortable, appeared to be struggling to breathe. She is obv iously cachectic. HEENT: Patient has significant bilateral temporal wasting. NECK: Normal, but cachectic. LUNGS: Clear bilaterally. ABDOMEN: Patient has massive abdominal distention, way out of proportion with the body habitus. EXTREMITIES: With bilateral anasarca and chronic stasis. PELVIC: Deferred. IMPRESSION: 1. Severely decompensated medically due to chronic and extensive abdominopelvic mass. 2. The possibility of malignancy is high; however, consider chronic chronology. This could also be a significant large borderline tumor. 3. Patient is not a surgical candidate due to her medical decompensation chronically. RECOMMENDATIONS: 1. I agree with the primary care team that any surgical intervention would be futile, as this proce ss has been ignored and neglected for more than 4 years. 2. Consider patient's respiratory status, her renal status. Comfort measures appear to be reasonab le in this situation. 3. I would be very skeptical that patient will improve to a point where surgical exploration is pos sible. 4. I agree with comfort care measures as outlined by the primary care team. Dictated By: LIZ GOFF MD [facility] Conf#: [id number] DID#: [id number] CC: FCO RODRIGUEZ MD;*EndCC*
[2017-04-24] MEDS ORDERED: SENNA/DOCUSATE NA (8.6MG/50MG) TAB PO SCH (21:00)
== END 2017-04-24 17:08 | disposition expired | DRG 948 ==
LOC: E/R 18:49 → MS1 04-23 02:49
PROVIDERS: ADMIT Family Medicine; ATTEND Family Medicine
DX: R18.8 Other ascites (principal); N17.9 Acute kidney failure, unspecified; K92.0 Hematemesis; R64 Cachexia; N13.30 Unspecified hydronephrosis; D64.9 Anemia, unspecified; K44.9 Diaphragmatic hernia without obstruction or gangrene; R19.09 Other intra-abdominal and pelvic swelling, mass and lump; Z68.36 Body mass index [BMI] 36.0-36.9, adult; R97.0 Elevated carcinoembryonic antigen [CEA]; N13.9 Obstructive and reflux uropathy, unspecified; E87.5 Hyperkalemia; R11.10 Vomiting, unspecified
CPT/HCPCS: 36415; 74176; 76705; 76775; 76856; 80053; 80061; 80069; 81001; 81003; 82105; 82378; 82728; 83010; 83540; 83605; 83690; 83735; 83930; 83935; 84100; 84155; 84300; 84436; 84443; 84479; 84484; 85025; 85045; 85610; 85730; 86301; 86304; 93005; 94640; 94664; J1940; J2060; J2270; J2405; J2765; J7070; P9612